=== PATIENT | female | born 1965 | race Caucasian/White ===

== ENCOUNTER → 2022-10-11 | Outpatient (CLI) | payer BC ==
[2022-10-11 07:44] VITALS: BP 189/113; PULSE 78; RESP 17; TEMP 97.9
--- NOTE | 2022-10-11 08:42 | P.GSHP ---
History of Present Illness H&P Date: 10/11/22 Ann-Marie is a 57 -year-old who is being seen for breast pain. [place] [address] which was benign BIRADS 2. She subsequently underwent an ultrasound on 330 122 of the left axillary area which revealed a 1.1 cm lymph node. There was felt to be some cortical thickening and an ultrasound-guided core biopsy was performed. The results of this were a benign [place] [address]. She is been having pain in the left breast in the upper outer quadrant region for several months. It is aching in nature. She has intermittent shooting pain from that site down towards the nipple. She has been given a course of antibiotics to see if that would help decrease the pain without relief. On a scale of 1-10 the pain is a 3. It never goes away. She does not have pain in any other areas of her breasts. She is not complaining of any new lumps masses or nodules in either breast. She is not complaining of any nipple discharge or skin changes. She has never had anything like this in the past. She has not taken any hormones. She is postmenopausal. She has had core biopsies 2 of the left breast in the past which were benign. Caffeine: 2 cups/day nicotine: none; stoppped 20 years ago used to smoke 1/2 PPD for 7 years chocolate: seldom BCP: used for 5 years hormones: none Family History: father: colon cancer paternal uncle: colon cancer paternal grandfather: colon cancer paternal aunt: breast cancer tripple - sister: breast cancer at 55 brother: lung cancer maternal grandfather: prostate cancer Hormonal History: menarche: 14 , breast fed: yes, age at first : 17 menopause: 49 BCP: used for 5 years remote past Surgical History: tonsil tubal Medical History: HTN Essential thrombocythemia (treated with a chemo pill) Social History: nicotine: stopped 20 years ago alcohol: beer/weekends drugs: none - Constitutional Constitutional: Reports sweats - EENT Eyes: denies blurred vision, denies pain Ears: bilateral: tinnitus, deny: decreased hearing Ears, nose, mouth and throat: Denies headache, Denies sore throat - Breasts Breasts: bilateral: as per HPI - Cardiovascular Cardiovascular: Denies chest pain, Denies shortness of breath - Respiratory Respiratory: Denies cough, Denies 7 - Gastrointestinal Gastrointestinal: Denies abdominal pain, Denies diarrhea, Denies nausea, Denies vomiting - Genitourinary (Female) Genitourinary: Denies dysuria, Denies hematuria - Menstruation Menstruation: Reports postmenopausal - Musculoskeletal Musculoskeletal: Denies myalgias - Integumentary Integumentary: Denies pruritus, Denies rash - Neurological Neurological: Denies numbness, Denies weakness - Psychiatric Psychiatric: Denies anxiety, Denies depression - Endocrine Endocrine: Denies fatigue, Denies weight change - Hematologic/Lymphatic Comment: Essential thrombocythemia - Allergic/Immunologic Allergic/Immunologic: Reports as per HPI Medications and Allergies Home Medications Medication Instructions Recorded Confirmed Type Cholecalciferol [Vitamin D3 (25 50 mcg PO DAILY 10/11/22 10/11/22 History Mcg = 1000 Iu)] Allergies Allergy/AdvReac Type Severity Reaction Status Date / Time bee venom protein (honey bee) Allergy Swelling Unverified 10/11/22 07:37 Surgical - Exam - General no distress - Eyes normal ocular movement - Neck trachea midline - Respiratory normal respiratory effort, clear to auscultation - Cardiovascular Rhythm: regular Heart Sounds: normal: S1, S2 - Abdomen Abdomen: soft, non tender, no guarding, no rigid, no rebound - Integumentary normal turgor - Neurologic no disoriented, no combative - Musculoskeletal normal gait, normal posture - Psychiatric oriented to time, oriented to person, oriented to place, speech is normal, memory intact Breast Exam: BRA: 44D inspection: Bilateral grade 2/3 ptosis Palpation: Right breast: Multi-positional exam fibrocystic changes, no discrete dominant masses or nodules of concern Right axilla: No adenopathy of concern Left breast: Multi-positional exam fibrocystic changes, no discrete dominant masses or nodules of concern Left axilla: No adenopathy of concern Results Mammogram and ultrasound reviewed personally with Dr. Ding Assessment and Plan Assessment: Impression: Fibrocystic breast changes bilateral Mastodynia left breast upper outer quadrant No discrete dominant masses or nodules in either breast or axilla Most recent mammogram was 329-22 benign BIRADS 2 History of essential thrombocytosis anemia Plan: Lifestyle modifications discussed/stopping caffeine, attempting primrose oil, nonsteroidals, Bilateral mammogram January with appointment At this time there is nothing specific which would warrant interventional biopsy We'll consider genetic testing secondary to family history CC: Dr. Velasco
== END ==
LOC: WWCWWP 07:30
PROVIDERS: ATTEND Surgery
DX: N60.11 Diffuse cystic mastopathy of right breast (principal); N60.12 Diffuse cystic mastopathy of left breast; N64.4 Mastodynia; D47.3 Essential (hemorrhagic) thrombocythemia; Z91.030 Bee allergy status

== ENCOUNTER → 2023-02-10 | Outpatient (CLI) | payer BC ==
--- NOTE | 2023-02-11 08:36 | MM ---
Reason for Exam: Screening (asymptomatic). Last screening mammogram was performed 12 month(s) ago. Patient History: Menarche at age 13. First Full-Term at age 16. Postmenopausal. Patient has history of breast feeding. 01/01/2021, Ultrasound-Guided Core Biopsy on the Left side. 02/28/2022, Ultrasound-Guided Core Biopsy on the Left side. Paternal aunt had breast cancer at or over age 50. Paternal half sister had breast cancer at or over age 50. Risk Values: Kathryn 5 year model risk: 1.4%. NCI Lifetime model risk: 8.5%. Prior Study Comparison: 08/26/2014 Bilateral Screening Mammogram, [facility]. 12/13/2020 Bilateral Diagnostic Mammogram, [facility]. 12/13/2020 Left Diagnostic Ultrasound, [facility]. 01/01/2021 Left Diagnostic Mammogram, [facility]. 02/05/2022 Bilateral Screening Mammogram, [facility]. 02/28/2022 Left Diagnostic Mammogram, [facility]. Tissue Density: The breast tissue is heterogeneously dense. This may lower the sensitivity of mammography. Findings: Analyzed By CAD. 5 mm nodular density right 6:00 position proximately 6 cm from the nipple. Additional views are recommended. No suspicious calcifications are present. Overall Assessment: Incomplete: need additional imaging evaluation, BI-RAD 0 Management: Diagnostic Mammogram of the right breast. A clinical breast exam by your physician is recommended on an annual basis and results should be correlated with mammographic findings. Electronically signed and approved by: Mukesh Varela M.D. Radiologis
== END | disposition home or self-care (01) ==
LOC: RADMAMWWP 09:30
PROVIDERS: ATTEND Surgery
DX: Z12.31 Encounter for screening mammogram for malignant neoplasm of breast (principal); Z78.0 Asymptomatic menopausal state; Z80.3 Family history of malignant neoplasm of breast
CPT/HCPCS: 77063; 77067

== ENCOUNTER → 2023-02-14 | Outpatient (CLI) | payer BC ==
--- NOTE | 2023-02-14 10:10 | MM ---
Reason for Exam: Additional evaluation requested from abnormal screening. Last screening mammogram was performed less than 1 month ago. Patient History: Menarche at age 13. First Full-Term at age 16. Postmenopausal. Patient has history of breast feeding. 01/01/2021, Ultrasound-Guided Core Biopsy on the Left side. 02/28/2022, Ultrasound-Guided Core Biopsy on the Left side. Paternal aunt had breast cancer at or over age 50. Paternal half sister had breast cancer at or over age 50. Risk Values: Kathryn 5 year model risk: 1.4%. NCI Lifetime model risk: 8.5%. Tissue Density: Right: The breast tissue is heterogeneously dense. This may lower the sensitivity of mammography. Findings: Analyzed By CAD. Rounded 5 mm high density circumscribed mass around 6:00 in the right breast at middle depth. This persists with compression. No suspicious calcifications or architectural distortion. Overall Assessment: Incomplete: need additional imaging evaluation, BI-RAD 0 Management: Diagnostic Breast Ultrasound of the right breast. A clinical breast exam by your physician is recommended on an annual basis and results should be correlated with mammographic findings. This exam should not preclude additional follow-up of suspicious palpable abnormalities. Results were given to the patient verbally at the time of exam. Electronically signed and approved by: Chai Finnegan D.O.
--- NOTE | 2023-02-14 11:03 | USB ---
Reason for Exam: Additional evaluation requested from abnormal screening. Patient History: Menarche at age 13. First Full-Term at age 16. Postmenopausal. Patient has history of breast feeding. 01/01/2021, Ultrasound-Guided Core Biopsy on the Left side. 02/28/2022, Ultrasound-Guided Core Biopsy on the Left side. Paternal aunt had breast cancer at or over age 50. Paternal half sister had breast cancer at or over age 50. Risk Values: Kathryn 5 year model risk: 1.4%. NCI Lifetime model risk: 8.5%. Technique: Method: Targeted. Prior Study Comparison: 02/05/2022 Bilateral Screening Mammogram, [facility]. 02/28/2022 Left Diagnostic Mammogram, [facility]. 02/10/2023 Bilateral MG 3D screening mammo w/cad, [facility]. Findings: The lower section of the breast of the right breast, the axilla of the right breast and the retroareolar of the right breast were scanned. Targeted ultrasound of the right breast at 6:00 with additional evaluation of the nipple and axilla was performed. There is a irregular hypoechoic mass demonstrated in the right breast at 6:00 5 cm of the nipple measuring 0.5 x 0.4 x 0.4 cm. This demonstrates posterior acoustic shadowing. It is not parallel in orientation with indistinct margins. No internal color flow demonstrated. No axillary adenopathy demonstrated. Overall Assessment: Suspicious, BI-RAD 4 Management: Ultrasound Core Biopsy of the right breast. A clinical breast exam by your physician is recommended on an annual basis and results should be correlated with mammographic findings. This exam should not preclude additional follow-up of suspicious palpable abnormalities. Results were given to the patient verbally at the time of exam. Electronically signed and approved by: Chai Finnegan D.O.
== END | disposition home or self-care (01) ==
LOC: RADMAMWWP 09:38
PROVIDERS: ATTEND Surgery
DX: R92.8 Other abnormal and inconclusive findings on diagnostic imaging of breast (principal); Z78.0 Asymptomatic menopausal state; Z80.3 Family history of malignant neoplasm of breast
CPT/HCPCS: 77061; 77065

== ENCOUNTER → 2023-02-14 | Outpatient (CLI) | payer BC ==
[2023-02-14 11:09] VITALS: BP 186/104; PULSE 68; RESP 18; TEMP 97.7
--- NOTE | 2023-02-14 11:41 | P.PN ---
Subjective Progress Note Date: 02/14/23 Principal diagnosis: abnormal right breast ultrasound 10-11-22 Ann-Marie is a 57 -year-old who is being seen for breast pain. She had a bilateral screening mammogram performed on which was benign BIRADS 2. She subsequently underwent an ultrasound on 330 122 of the left axillary area which revealed a 1.1 cm lymph node. There was felt to be some cortical thickening and an ultrasound-guided core biopsy was performed. The results of this were a benign left axillary lymph node. This was done on . She is been having pain in the left breast in the upper outer quadrant region for several months. It is aching in nature. She has intermittent shooting pain fro m that site down towards the nipple. She has been given a course of antibiotics to see if that would help decrease the pain without relief. On a scale of 1-10 the pain is a 3. It never goes away. She does not have pain in any other areas of her breasts. She is not complaining of any new lumps masses or nodules in either breast. She is not complaining of any nipple discharge or skin changes. She has never had anything like this in the past. She has not taken any hormones. She is postmenopausal. She has had core biopsies 2 of the left breast in the past which were benign. 02-14-23 The patient had a bilateral mammogram on 02-10-23 which resulted in additional studies of the right breast. These were done on 02-14-23. A diagnostic mammogram of the right breast performed on 4722 and an ultrasound was recommended. Around a 5 mm high density circumscribed mass was seen in the 6 o'clock position of the breast. On ultrasound performed the same date the patient was noted to have a 5 mm x 4 mm lesion consistent with the area seen on mammogram. Ultrasound core biopsy was recommended for this. Patient herself does not feel any lumps masses or nodules of concern in either breast. The pain in the left breast has not changed. She is not complaining of any nipple discharge or skin changes. Caffeine: 2 cups/day nicotine: none; stoppped 21 years ago used to smoke 1/2 PPD for 7 years chocolate: seldom BCP: used for 5 years hormones: none Family History: father: colon cancer paternal uncle: colon cancer paternal grandfather: colon cancer paternal aunt: breast cancer tripple - sister: breast cancer at 55 brother: lung cancer maternal grandfather: prostate cancer Hormonal History: menarche: 14 , breast fed: yes, age at first : 17 menopause: 49 BCP: used for 5 years remote past Surgical History: tonsil tubal Medical History: HTN Essential thrombocythemia (treated with a chemo pill) Social History: nicotine: stopped 20 years ago alcohol: beer/weekends drugs: none - Constitutional Constitutional: Reports sweats - EENT Eyes: denies blurred vision, denies pain Ears: bilateral: tinnitus, deny: decreased hearing Ears, nose, mouth and throat: Denies headache, Denies sore throat - Breasts Breasts: bilateral: as per HPI - Cardiovascular Cardiovascular: Denies chest pain, Denies shortness of breath - Respiratory Respiratory: Denies cough - Gastrointestinal Gastrointestinal: Denies abdominal pain, Denies diarrhea, Denies nausea, Denies vomiting - Genitourinary (Female) Genitourinary: Denies dysuria, Denies hematuria - Menstruation Menstruation: Reports postmenopausal - Musculoskeletal Musculoskeletal: Denies myalgias - Integumentary Integumentary: Denies pruritus, Denies rash - Neurological Neurological: Denies numbness, Denies weakness - Psychiatric Psychiatric: Denies anxiety, Denies depression - Endocrine Endocrine: Denies fatigue, Denies weight change - Hematologic/Lymphatic Comment: Essential thrombocythemia - Allergic/Immunologic Allergic/Immunologic: Reports as per HPI Medications and Allergies Home Medications Medication Instructions Recorded Confirmed Type Cholecalciferol [Vitamin D3 (25 50 mcg PO DAILY 10/11/22 10/11/22 History Mcg = 1000 Iu)] Allergies Allergy/AdvReac Type Severity Reaction Status Date / Time bee venom protein (honey bee) Allergy Swelling Unverified 10/11/22 07:37 Objective - Vital Signs Vital signs: Vital Signs Temp 97.7 F 02/14/23 11:04 Pulse 68 02/14/23 11:04 Resp 18 02/14/23 11:04 BP 186/104 02/14/23 11:04 Pulse Ox 99 02/14/23 11:04 FiO2 Intake & Output 02/13/23 02/14/23 02/14/23 18:59 06:59 18:59 Weight 89.811 kg - Constitutional General appearance: Present: cooperative - EENT Eyes: Present: EOMI ENT: Present: hearing grossly normal - Neck Neck: Present: normal ROM - Respiratory Respiratory: bilateral: CTA - Cardiovascular Rhythm: regular Heart sounds: normal: S1, S2 - Gastrointestinal General gastrointestinal: Present: soft - Integumentary Integumentary: Present: normal turgor - Musculoskeletal Musculoskeletal: Present: gait normal - Psychiatric Psychiatric: Present: A&O x's 3, appropriate affect, intact judgment & insight - Additional findings Additional findings: Breast Exam: BRA: 44D inspection: Bilateral grade 2/3 ptosis Palpation: Right breast: Multi-positional exam fibrocystic changes, no discrete dominant masses or nodules of concern Right axilla: No adenopathy of concern Left breast: Multi-positional exam fibrocystic changes, no discrete dominant masses or nodules of concern Left axilla: No adenopathy of concern Assessment and Plan Assessment: Impression: Fibrocystic breast changes bilateral Mastodynia left breast upper outer quadrant no change No discrete dominant masses or nodules in either breast or axilla Most recent mammogram resulted in additional workup of the right breast at 6:00 Ultrasound right breast 6:00 5 mm lesion for which core biopsy is recommended History of essential thrombocytosis anemia Plan: Lifestyle modifications discussed/stopping caffeine, attempting primrose oil, nonsteroidals, Ultrasound core biopsy right breast in follow-up after this The patient did a 23 and me genetic test which did not show anything, she understands that she could have a formal genetic testing done here at this time she is going to wait CC: Dr. Velasco
== END ==
LOC: WWCWWP 09:37
PROVIDERS: ATTEND Surgery
DX: N60.29 Fibroadenosis of unspecified breast (principal); R92.8 Other abnormal and inconclusive findings on diagnostic imaging of breast; N64.4 Mastodynia; N60.12 Diffuse cystic mastopathy of left breast; Z86.2 Personal history of diseases of the blood and blood-forming organs and certain disorders involving the immune mechanism; Z91.030 Bee allergy status; I10 Essential (primary) hypertension

== ENCOUNTER → 2023-03-05 | Day surgery (SDC) | payer BC ==
--- NOTE | 2023-03-10 10:20 | MM ---
Reason for Exam: Post Procedure Mammogram. Last screening mammogram was performed less than 1 month ago. Patient History: Menarche at age 13. First Full-Term at age 16. Postmenopausal. Patient has history of breast feeding. 01/01/2021, Ultrasound-Guided Core Biopsy on the Left side. 02/28/2022, Ultrasound-Guided Core Biopsy on the Left side. Paternal aunt had breast cancer at or over age 50. Paternal half sister had breast cancer at or over age 50. Risk Values: Kathryn 5 year model risk: 1.4%. NCI Lifetime model risk: 8.5%. Prior Study Comparison: 02/28/2022 Left Diagnostic Mammogram, [facility]. 02/10/2023 Bilateral MG 3D screening mammo w/cad, [facility]. 02/14/2023 Right US breast workup limited RT, [facility]. 02/14/2023 Right MG 3D work up w/cad RT, [facility]. Tissue Density: Right: The breast tissue is heterogeneously dense. This may lower the sensitivity of mammography. Findings: Stable parenchyma within the breasts. No new suspicious masses, calcifications or distortions. Pathology Description: Location: 6 o'clock. Marker Left Behind. Needle Type: Mammotome Cores: 7 Skin Nicks: 1 Gauge: 13 The procedure of ultrasound guided core biopsy was explained to the patient. Benefits, alternatives, and risks were discussed. An informed consent was then obtained. The patient was placed in supine positioning for imaging and for the procedure. The overlying skin was prepped and draped in usual sterile fashion. Lidocaine buffered with bicarbonate was used as anesthetic into the skin and subcutaneous tissue up to area of concern in the right breast. A marek was made with surgical scalpel. Under ultrasound guidance, a 12-gauge vacuum assisted biopsy gun device was used to obtain 7 core samples. Following this, a biopsy clip was left in lesion. The patient tolerated the procedure well without any immediate complication. The patient was kept in the radiology department for short stay after the procedure and then discharged home in stable condition. Postprocedure mammogram: The patient was transferred to mammography for physician ordered post procedure mammogram for clip placement verification. Impression: Successful, uncomplicated ultrasound guided core biopsy of area of concern in the right breast, full pathology results to follow. Pathology Results: Result: High risk, Intraductual papilloma high risk. RIGHT BREAST, SIX O'CLOCK, ULTRASOUND GUIDED NEEDLE CORE BIOPSY: Intraductal papilloma. Overall Assessment: High risk Assessment: MG diagnostic mammo RT wo CAD - Right: Suspicious, BI-RAD 4. Management: Surgical Consultation of the right breast. Electronically signed and approved by: Nilton Stevens DO
== END ==
LOC: RADUSWWP 07:54
PROVIDERS: ATTEND Surgery
DX: D24.1 Benign neoplasm of right breast (principal); Z78.0 Asymptomatic menopausal state; Z80.3 Family history of malignant neoplasm of breast
CPT/HCPCS: 88305; 77065; 19083; A4648

== ENCOUNTER → 2023-04-23 | Outpatient (CLI) | payer BC ==
[2023-04-23 10:28] VITALS: BP 136/85; PULSE 70; RESP 18; TEMP 97.9
--- NOTE | 2023-04-23 10:54 | P.PN ---
Subjective Progress Note Date: 04/23/23 Principal diagnosis: right breast intraductal papilloma intraductal papilloma 02-14-23 The patient had a bilateral mammogram on 02-10-23 which resulted in additional studies of the right breast. These were done on 02-14-23. A diagnostic mammogram of the right breast performed on 4722 and an ultrasound was recommended. Around a 5 mm high density circumscribed mass was seen in the 6 o'clock position of the breast. On ultrasound performed the same date the patient was noted to h ave a 5 mm x 4 mm lesion consistent with the area seen on mammogram. Ultrasound core biopsy was recommended for this. Patient herself does not feel any lumps masses or nodules of concern in either breast. The pain in the left breast has not changed. She is not complaining of any nipple discharge or skin changes. 03-14-23 Ultrasound core biopsy of the lesion in the right breast was an intraductal papilloma. She tolerated the biopsy without difficulty. I reviewed this in detail with radiology Dr. Grace He is not certain that the lesion was entirely removed. The lesion is vascular in nature. His recommendation is that it should be removed. Discussed this with the patient as well. We have talked about close surveillance and watching the area. However with the above findings as well as positive family history she would prefer that this be removed. Caffeine: 2 cups/day nicotine: none; stoppped 21 years ago used to smoke 1/2 PPD for 7 years chocolate: seldom BCP: used for 5 years hormones: none Family History: father: colon cancer paternal uncle: colon cancer paternal grandfather: colon cancer paternal aunt: breast cancer tripple - sister: breast cancer at 55 brother: lung cancer maternal grandfather: prostate cancer Hormonal History: menarche: 14 , breast fed: yes, age at first : 17 menopause: 49 BCP: used for 5 years remote past Surgical History: tonsil tubal Medical History: HTN Essential thrombocythemia (treated with a chemo pill) Social History: nicotine: stopped 20 years ago alcohol: beer/weekends drugs: none - Constitutional Constitutional: Reports sweats - EENT Eyes: denies blurred vision, denies pain Ears: bilateral: tinnitus, deny: decreased hearing Ears, nose, mouth and throat: Denies headache, Denies sore throat - Breasts Breasts: bilateral: as per HPI - Cardiovascular Cardiovascular: Denies chest pain, Denies shortness of breath - Respiratory Respiratory: Denies cough - Gastrointestinal Gastrointestinal: Denies abdominal pain, Denies diarrhea, Denies nausea, Denies vomiting - Genitourinary (Female) Genitourinary: Denies dysuria, Denies hematuria - Menstruation Menstruation: Reports postmenopausal - Musculoskeletal Musculoskeletal: Denies myalgias - Integumentary Integumentary: Denies pruritus, Denies rash - Neurological Neurological: Denies numbness, Denies weakness - Psychiatric Psychiatric: Denies anxiety, Denies depression - Endocrine Endocrine: Denies fatigue, Denies weight change - Hematologic/Lymphatic Comment: Essential thrombocythemia - Allergic/Immunologic Allergic/Immunologic: Reports as per HPI Medications and Allergies Home Medications Medication Instructions Recorded Confirmed Type Cholecalciferol [Vitamin D3 (25 50 mcg PO DAILY 10/11/22 10/11/22 History Mcg = 1000 Iu)] Allergies Allergy/AdvReac Type Severity Reaction Status Date / Time bee venom protein (honey bee) Allergy Swelling Unverified 10/11/22 07:37 Objective - Vital Signs Vital signs: Vital Signs Temp 97.9 F 04/23/23 10:23 Pulse 70 04/23/23 10:23 Resp 18 04/23/23 10:23 BP 136/85 04/23/23 10:23 Pulse Ox 97 04/23/23 10:23 FiO2 Intake & Output 04/22/23 04/23/23 04/23/23 18:59 06:59 18:59 Weight 79.379 kg - Constitutional General appearance: Present: cooperative - EENT Eyes: Present: EOMI ENT: Present: hearing grossly normal - Neck Neck: Present: normal ROM - Respiratory Respiratory: bilateral: CTA - Cardiovascular Rhythm: regular Heart sounds: normal: S1, S2 - Gastrointestinal General gastrointestinal: Present: soft - Integumentary Integumentary: Present: normal turgor - Musculoskeletal Musculoskeletal: Present: gait normal - Psychiatric Psychiatric: Present: A&O x's 3, appropriate affect, intact judgment & insight - Additional findings Additional findings: BRA: 44D inspection: Bilateral grade 2/3 ptosis Palpation: Right breast: Multi-positional exam fibrocystic changes, no discrete dominant masses or nodules of concern Right axilla: No adenopathy of concern Left breast: Multi-positional exam fibrocystic changes, no discrete dominant masses or nodules of concern; no evidence of hematoma or ecchymosis related to recent biopsy Left axilla: No adenopathy of concern Assessment and Plan Assessment: Impression: Fibrocystic breast changes bilateral Mastodynia left breast upper outer quadrant no change No discrete dominant masses or nodules in either breast or axilla Most recent mammogram resulted in additional workup of the right breast at 6:00 Pathology intraductal papilloma right breast incompletely excised/vascular lesion History of essential thrombocytosis anemia Plan: Lifestyle modifications discussed/stopping caffeine, attempting primrose oil, nonsteroidals, Parents from Dr. Velasco/the patient has essential thrombocytosis and has high platelets we will get clearance prior to surgical resection Ultrasound core biopsy right breast pathology intraductal papilloma, incompletely excised and vascular lesion, recommendation as per radiology is for excision Needle localization right breast and lumpectomy of area of intraductal papilloma right breast, possible onco-plastic tissue transfer Risk and benefits of the procedure were discussed with the patient. Risks include but are not limited to bleeding, infection, reaction to the anesthetic. The lesion were to be in complete clearly excised may be necessary to re-excise in the future. We discussed chemoprophylaxis however the patient is not interested at this time. The patient did a 23 and me genetic test which did not show anything, she understands that she could have a formal genetic testing done here at this time she is going to wait CC: Dr. Velasco
== END ==
LOC: WWCWWP 10:08
PROVIDERS: ATTEND Surgery
DX: N60.12 Diffuse cystic mastopathy of left breast (principal); N64.4 Mastodynia; D75.839 Thrombocytosis, unspecified; D47.3 Essential (hemorrhagic) thrombocythemia; I10 Essential (primary) hypertension; Z80.3 Family history of malignant neoplasm of breast; Z80.0 Family history of malignant neoplasm of digestive organs; Z80.1 Family history of malignant neoplasm of trachea, bronchus and lung; Z90.11 Acquired absence of right breast and nipple; Z91.030 Bee allergy status; Z87.891 Personal history of nicotine dependence

== ENCOUNTER 2023-05-20 09:17 | Day surgery (SDC) | payer BC ==
[~2023-05-20 09:17] MED LIST: DEXAMETHASONE SOD PHOSPHATE 4 MG/ML 1 ML VIAL IV ONE; HEPARIN SODIUM,PORCINE/PF 5,000 UNIT/0.5 ML SYRINGE SQ PRN; HYDROmorphone 0.5 MG/0.5 ML SYRINGE IVP PRN; LACTATED RINGERS 1,000 ML IV SCH; LIDOCAINE 1% (10MG/ML) FOR IV START INTRADERMA PRN; ONDANSETRON 4 MG/2 ML VIAL IVP ONE; Pre Op ABX Message 1 EACH MISC MISCELLANE ONE; droPERidol 5 MG/2 ML VIAL IVP ONE
[2023-05-20] MEDS ORDERED: ALPRAZolam 0.25 MG TAB ONE (09:54)
[2023-05-20] MEDS ORDERED: ALPRAZolam 0.25 MG TAB PO ONE (09:57)
[2023-05-20] MEDS ORDERED: LIDOCAINE 1% INJ 10MG/ML (20 ML MDV) SQ ONE (10:36)
[2023-05-20] MEDS ORDERED: KETOROLAC 15 MG/ML 1 ML VIAL ONE (11:48)
[2023-05-20] MEDS ORDERED: PROPOFOL 10 MG/ML 20 ML VIAL IV ONE (11:48)
[2023-05-20] MEDS ORDERED: PHENYLEPHRINE-0.9% NACL SYG 1,000 MCG/10 ML SYRINGE ONE (11:48)
[2023-05-20] MEDS ORDERED: fentaNYL (PF) 50 MCG/ML 2 ML AMP ONE (11:48)
[2023-05-20] MEDS ORDERED: LIDOCAINE 2% INJ 20 MG/ML (2 ML VIAL) ONE (11:48)
[2023-05-20] MEDS ORDERED: MIDAZOLAM 2 MG/2 ML VIAL ONE (11:48)
--- NOTE | 2023-05-20 12:57 | P.OP ---
Date of Procedure: 05/20/23 Preoperative Diagnosis: Right breast core biopsy intraductal papilloma with vascularity and incompletely excised, recommendation as per radiology for excision Postoperative Diagnosis: Same Procedure(s) Performed: Needle localization excisional biopsy right breast, onco-plastic tissue transfer 8 cm Anesthesia: GETA Surgeon: Ina Henson Estimated Blood Loss (ml): 5 IV fluids (ml): 500 Pathology: other (Breast tissue/radiographic specimen revealed clip and area of concern reviewed with Dr. Stevens radiology) Condition: stable Disposition: same day Indications for Procedure: core Biopsy right breast intraductal papilloma incompletely excised with increased vascularity as per radiology recommended excision Operative Findings: Fibrofatty breast tissue Description of Procedure: Following needle localization of the area of concern in the right breast patient was taken to the operative suite. Following induction of anesthesia the right breast was prepped and draped in a sterile fashion. An incision was made and carried down to the shaft of the needle. Dissection was performed to the thick portion of the terminal portion of the needle. Wide excision was performed around this area. After assured that hemostasis was attained and inferior pedicle supply 2 cm in size was developed for closure of the defect. The defect itself was approximately 4 x 2 cm. The area was irrigated. Titanium clips were placed. The cavity was closed using 3-0 Vicryl suture. Total tissue transfer was 16 cm. The specimen was radiographed and the area of concern as well as the clip was felt to be present in the specimen. The subcutaneous tissue was closed using 4-0 Monocryl. Steri-Strips were applied. The patient tolerated the procedure in stable condition. All instrument and sponge counts were correct at the end of the case.
[2023-05-20 13:08] VITALS: TEMP 97.2
[2023-05-20 13:47] VITALS: RESP 16
[2023-05-20] MEDS ORDERED: HYDROcodone/APAP 5-325MG 1 EACH TAB ONE (14:03)
[2023-05-20] MEDS ORDERED: HYDROcodone/APAP 5-325MG 1 EACH TAB PO ONE (14:07)
[2023-05-20 14:22] VITALS: BP 150/86; PULSE 73
== END 2023-05-20 14:48 | disposition home or self-care (01) ==
LOC: OR 09:17
PROVIDERS: ATTEND Surgery
DX: D24.1 Benign neoplasm of right breast (principal)
CPT/HCPCS: 19125; 14000; 88307; 77065; 76098; 19285; C1819; J2250; J1100; J2405; J2001 ×2; J3010; J1885; J2370; J2704; J1644

== ENCOUNTER → 2023-05-29 | Outpatient (CLI) | payer BC ==
[2023-05-29 08:28] VITALS: BP 134/83; PULSE 78; RESP 18; TEMP 97.9
--- NOTE | 2023-05-29 08:33 | P.PN ---
Progress Note - Text Progress Note Date: 05/29/23 Ann-Marie is a 57 year old white female status post right breast needle localization and resection on 05-20-23. Her pathology revealed an intraductal papilloma focally extending to the cauterized margin and ADH, margins (-). Examination: Lungs: Clear Heart: Regular rate and rhythm Incision right breast clean and dry no evidence of hematoma or infection Impression: Right breast atypical ductal hyperplasia/intraductal papilloma extending to cauterized margin of excision Plan: We have discussed possible chemoprophylaxis, the patient has essential thrombocytosis, which increases her risks of blood clotting She is going to meet and discuss this with medical oncology Repeat right breast mammogram in 6 months with physician exam at that time CC: Dr. Velasco
== END ==
LOC: WWCWWP 08:04
PROVIDERS: ATTEND Surgery
DX: N60.91 Unspecified benign mammary dysplasia of right breast (principal); D24.1 Benign neoplasm of right breast; Z91.030 Bee allergy status

== ENCOUNTER → 2023-08-29 | Outpatient (CLI) | payer BC ==
[2023-08-29 12:11] VITALS: BP 170/93; PULSE 78; RESP 17; TEMP 98.3
--- NOTE | 2023-08-29 12:25 | P.PN ---
Subjective Progress Note Date: 08/29/23 right breast intraductal papilloma 02-14-23 The patient had a bilateral mammogram on 02-10-23 which resulted in additional studies of the right breast. These were done on 02-14-23. A diagnostic mammogram of the right breast performed on 4722 and an ultrasound was recommended. Around a 5 mm high density circumscribed mass was seen in the 6 o'clock position of the breast. On ultrasound performed the same date the patient was noted to have a 5 mm x 4 mm lesion consistent with the area seen on mammogram. Ultrasound core biopsy was recommended for this. Patient herself does not feel any lumps masses or nodules of concern in either breast. The pain in the left breast has not changed. She is not complaining of any nipple discharge or skin changes. 03-14-23 Ultrasound core biopsy of the lesion in the right breast was an intraductal papilloma. She tolerated the biopsy without difficulty. I reviewed this in detail with radiology Dr. Grace He is not certain that the lesion was entirely removed. The lesion is vascular in nature. His recommendation is that it should be removed. Discussed this with the patient as well. We have talked about close surveillance and watching the area. However with the above findings as well as positive family history she would prefer that this be removed. 08-29-23 The patient on underwent a needle localization and excisional biopsy of an intraductal papilloma of the right breast. This revealed intraductal papilloma focally extending to the cauterized margin. There was atypical ductal hyperplasia and not involving the margin. The patient noted some dimpling on the right inferior breast. She does not note any new masses. medical oncology note reviewed genetic testing was performed and results were negative, Chemoprophylaxis discussed by medical oncology and secondary to the fact that she has essential thrombocythemia she opted not to hit take tamoxifen They also reviewed aromatase inhibitors and she is going to consider this Caffeine: 2 cups/day nicotine: none; stoppped 21 years ago used to smoke 1/2 PPD for 7 years chocolate: seldom BCP: used for 5 years hormones: none Family History: father: colon cancer paternal uncle: colon cancer paternal grandfather: colon cancer paternal aunt: breast cancer tripple - sister: breast cancer at 55 brother: lung cancer maternal grandfather: prostate cancer Hormonal History: menarche: 14 , breast fed: yes, age at first : 17 menopause: 49 BCP: used for 5 years remote past Surgical History: tonsil tubal Medical History: HTN Essential thrombocythemia (treated with a chemo pill) Social History: nicotine: stopped 20 years ago alcohol: beer/weekends drugs: none - Constitutional Constitutional: Reports sweats - EENT Eyes: denies blurred vision, denies pain Ears: bilateral: tinnitus, deny: decreased hearing Ears, nose, mouth and throat: Denies headache, Denies sore throat - Breasts Breasts: bilateral: as per HPI - Cardiovascular Cardiovascular: Denies chest pain, Denies shortness of breath - Respiratory Respiratory: Denies cough - Gastrointestinal Gastrointestinal: Denies abdominal pain, Denies diarrhea, Denies nausea, Denies vomiting - Genitourinary (Female) Genitourinary: Denies dysuria, Denies hematuria - Menstruation Menstruation: Reports postmenopausal - Musculoskeletal Musculoskeletal: Denies myalgias - Integumentary Integumentary: Denies pruritus, Denies rash - Neurological Neurological: Denies numbness, Denies weakness - Psychiatric Psychiatric: Denies anxiety, Denies depression - Endocrine Endocrine: Denies fatigue, Denies weight change - Hematologic/Lymphatic Comment: Essential thrombocythemia - Allergic/Immunologic Allergic/Immunologic: Reports as per HPI Medications and Allergies Home Medications Medication Instructions Recorded Confirmed Type Cholecalciferol [Vitamin D3 (25 50 mcg PO DAILY 10/11/22 10/11/22 History Mcg = 1000 Iu)] Allergies Allergy/AdvReac Type Severity Reaction Status Date / Time bee venom protein (honey bee) Allergy Swelling Unverified 10/11/22 07:37 Objective - Vital Signs Vital signs: Intake & Output 08/28/23 08/29/23 08/29/23 18:59 06:59 18:59 Weight 86.183 kg - Constitutional General appearance: Present: cooperative - EENT Eyes: Present: EOMI - Neck Neck: Present: normal ROM - Respiratory Respiratory: bilateral: CTA - Cardiovascular Rhythm: regular Heart sounds: normal: S1, S2 - Integumentary Integumentary: Present: normal turgor - Musculoskeletal Musculoskeletal: Present: gait normal - Psychiatric Psychiatric: Present: A&O x's 3, appropriate affect, intact judgment & insight - Additional findings Additional findings: BRA: 44D inspection: Bilateral grade 2/3 ptosis Palpation: Right breast: Multi-positional exam fibrocystic changes, no discrete dominant masses or nodules of concern, well-healed scar from prior biopsy, there is some dimpling of the skin when she raises her arm at the biopsy site Right axilla: No adenopathy of concern Left breast: Multi-positional exam fibrocystic changes, no discrete dominant masses or nodules of concern; Left axilla: No adenopathy of concern Assessment and Plan Assessment: Impression: Fibrocystic breast changes bilateral Mastodynia left breast upper outer quadrant no change No discrete dominant masses or nodules in either breast or axilla Most recent mammogram resulted in additional workup of the right breast at 6:00 Pathology intraductal papilloma right breast incompletely excised/vascular lesion/she underwent needle localization and excision of this lesion on History of essential thrombocytosis anemia Plan: Patient is due for bilateral mammogram first of the year then appointment Ultrasound of the right breast the area of dimpling, to follow up after ultrasound for results Patient is going to consider aromatase inhibitor and will follow with medical oncology We discussed chemoprophylaxis she is considering this with medical oncology CC: Dr. Velasco
== END ==
LOC: WWCWWP 11:56
PROVIDERS: ATTEND Surgery
DX: N60.12 Diffuse cystic mastopathy of left breast (principal); N60.11 Diffuse cystic mastopathy of right breast; N64.4 Mastodynia; I10 Essential (primary) hypertension; D24.1 Benign neoplasm of right breast; Z80.3 Family history of malignant neoplasm of breast; Z87.891 Personal history of nicotine dependence; Z91.030 Bee allergy status; Z79.899 Other long term (current) drug therapy

== ENCOUNTER → 2023-08-29 | Outpatient (CLI) | payer BC ==
--- NOTE | 2023-08-29 13:21 | USB ---
Reason for Exam: Clinical finding. Patient History: Menarche at age 13. First Full-Term at age 16. Postmenopausal. Patient has history of breast feeding. Previous Hyperplasia w/o Atypia at age 57. 05/20/2023, Benign US breast localization RT on the right side. 03/05/2023, High risk US biopsy breast VAD RT on the right side. 01/01/2021, Ultrasound-Guided Core Biopsy on the Left side. 02/28/2022, Ultrasound-Guided Core Biopsy on the Left side. Paternal aunt had breast cancer at or over age 50. Paternal half sister had breast cancer at or over age 50. Risk Values: Kathryn 5 year model risk: 1.4%. NCI Lifetime model risk: 8.3%. Technique: Method: Targeted. Prior Study Comparison: 02/14/2023 Right MG 3D work up w/cad RT, [facility]. 03/05/2023 Right MG diagnostic mammo RT wo CAD, [facility]. 05/20/2023 Right MG diagnostic mammo RT wo CAD, [facility]. Findings: The lower section of the breast of the right breast was scanned. There appears to be probable seroma at the site of clinical concern at the lumpectomy site which corresponds to the right 5 to 7:00 position 5 cm from the nipple measuring 2.3 x 1.3 cm. Short-term follow-up and clinical correlation advised. Overall Assessment: Probably benign, BI-RAD 3 Management: Diagnostic Breast Ultrasound of the right breast in 3 months. A clinical breast exam by your physician is recommended on an annual basis and results should be correlated with mammographic findings. This exam should not preclude additional follow-up of suspicious palpable abnormalities. Results were given to the patient verbally at the time of exam. Electronically signed and approved by: Mukesh Varela M.D. Radiologis
== END | disposition home or self-care (01) ==
LOC: RADUSWWP 12:30
PROVIDERS: ATTEND Surgery
DX: R92.8 Other abnormal and inconclusive findings on diagnostic imaging of breast (principal); Z78.0 Asymptomatic menopausal state; Z80.3 Family history of malignant neoplasm of breast

== ENCOUNTER → 2023-11-24 | Outpatient (CLI) | payer BC ==
--- NOTE | 2023-11-24 09:43 | MM ---
Reason for Exam: Follow-up at short interval from prior study. Last screening mammogram was performed 9 month(s) ago. Patient History: Menarche at age 13. First Full-Term at age 16. Postmenopausal. Patient has history of breast feeding. Previous Hyperplasia w/o Atypia at age 57. Hormonal Contraceptives for 2 years from age 18 until age 20. 05/20/2023, Benign US breast localization RT on the right side. 03/05/2023, High risk US biopsy breast VAD RT on the right side. 01/01/2021, Ultrasound-Guided Core Biopsy on the Left side. 02/28/2022, Ultrasound-Guided Core Biopsy on the Left side. Paternal aunt had breast cancer, age 70. Paternal half sister had breast cancer, age 54. Risk Values: Kathryn 5 year model risk: 1.4%. NCI Lifetime model risk: 8.3%. Tissue Density: There are scattered fibroglandular densities. Findings: Analyzed By CAD. Postexcisional changes on the right. Microclip left breast from prior biopsies. Microclip in the left axilla from prior biopsy as well. No significant change from prior exams. Overall Assessment: Benign, BI-RAD 2 Management: Screening Mammogram of both breasts in 1 year. . Results were given to the patient verbally at the time of exam. Patient should continue monthly self-breast exams. A clinical breast exam by your physician is recommended on an annual basis. This exam should not preclude additional follow-up of suspicious palpable abnormalities. Note on Kathryn scores and lifetime risk: 1. A Kathryn score greater than 3% is considered moderate risk. If this is the case, consider specialist referral to assess eligibility for a risk reducing agent. 2. If overall lifetime risk for the development of breast cancer is 20% or higher, the patient may qualify for future screening with alternating mammogram and breast MRI. Electronically signed and approved by: Yoryd Bustamante M.D. Radiologist
== END | disposition home or self-care (01) ==
LOC: RADMAMWWP 08:34
PROVIDERS: ATTEND Surgery
DX: R92.323 Mammographic fibroglandular density, bilateral breasts (principal); Z78.0 Asymptomatic menopausal state; Z80.3 Family history of malignant neoplasm of breast
CPT/HCPCS: 77062; 77066

== ENCOUNTER → 2023-12-04 | Outpatient (CLI) | payer BC ==
[2023-12-04 14:44] VITALS: BP 180/88; PULSE 75; RESP 17; TEMP 97.8
--- NOTE | 2023-12-04 14:58 | P.PN ---
Subjective Progress Note Date: 12/04/23 08/29/23 right breast intraductal papilloma 02-14-23 The patient had a bilateral mammogram on 02-10-23 which resulted in additional studies of the right breast. These were done on 02-14-23. A diagnostic mammogram of the right breast performed on 4722 and an ultrasound was recommended. Around a 5 mm high density circumscribed mass was seen in the 6 o'clock position of the breast. On ultrasound performed the same date the patient was noted to have a 5 mm x 4 mm lesion consistent with the area seen on mammogram. Ultrasound core biopsy was recommended for this. Patient herself does not feel any lumps masses or nodules of concern in either breast. The pain in the left breast has not changed. She is not complaining of any nipple discharge or skin changes. 03-14-23 Ultrasound core biopsy of the lesion in the right breast was an intraductal papilloma. She tolerated the biopsy without difficulty. I reviewed this in detail with radiology Dr. Grace He is not certain that the lesion was entirely removed. The lesion is vascular in nature. His recommendation is that it should be removed. Discussed this with the patient as well. We have talked about close surveillance and watching the area. However with the above findings as well as positive family history she would prefer that this be removed. 08-29-23 The patient on underwent a needle localization and excisional biopsy of an intraductal papilloma of the right breast. This revealed intraductal papilloma focally extending to the cauterized margin. There was atypical ductal hyperplasia and not involving the margin. The patient noted some dimpling on the right inferior breast. She does not note any new masses. medical oncology note reviewed genetic testing was performed and results were negative, Chemoprophylaxis discussed by medical oncology and secondary to the fact that she has essential thrombocythemia she opted not to not take tamoxifen They also reviewed aromatase inhibitors and she is going to consider this 12-04-23 Medical oncology note 09-23-2023 reviewed. Follow-up for essential thromboc ythemia; again a discussion regarding chemoprophylaxis was entertained however secondary to the thrombocytopenia anemia she declined 11-24-23 bilateral mammogram BI-RADS 2, personally reviewed; no new finding of any new lumps masses or nodules of concern in either breast on exam by the patient. Caffeine: 2 cups/day nicotine: none; stoppped 21 years ago used to smoke 1/2 PPD for 7 years chocolate: seldom BCP: used for 5 years hormones: none Family History: father: colon cancer paternal uncle: colon cancer paternal grandfather: colon cancer paternal aunt: breast cancer tripple - sister: breast cancer at 55 brother: lung cancer maternal grandfather: prostate cancer Hormonal History: menarche: 14 , breast fed: yes, age at first : 17 menopause: 49 BCP: used for 5 years remote past Surgical History: tonsil tubal Medical History: HTN Essential thrombocythemia (treated with a chemo pill in the past, now takes daily baby aspirin) Social History: nicotine: stopped 20 years ago alcohol: beer/weekends drugs: none - Constitutional Constitutional: Reports sweats - EENT Eyes: denies blurred vision, denies pain Ears: bilateral: tinnitus, deny: decreased hearing Ears, nose, mouth and throat: Denies headache, Denies sore throat - Breasts Breasts: bilateral: as per HPI - Cardiovascular Cardiovascular: Denies chest pain, Denies shortness of breath - Respiratory Respiratory: Denies cough - Gastrointestinal Gastrointestinal: Denies abdominal pain, Denies diarrhea, Denies nausea, Denies vomiting - Genitourinary (Female) Genitourinary: Denies dysuria, Denies hematuria - Menstruation Menstruation: Reports postmenopausal - Musculoskeletal Musculoskeletal: Denies myalgias - Integumentary Integumentary: Denies pruritus, Denies rash - Neurological Neurological: Denies numbness, Denies weakness - Psychiatric Psychiatric: Denies anxiety, Denies depression - Endocrine Endocrine: Denies fatigue, Denies weight change - Hematologic/Lymphatic Comment: Essential thrombocythemia - Allergic/Immunologic Allergic/Immunologic: Reports as per HPI Medications and Allergies Home Medications Medication Instructions Recorded Confirmed Type Cholecalciferol [Vitamin D3 (25 50 mcg PO DAILY 10/11/22 10/11/22 History Mcg = 1000 Iu)] Allergies Allergy/AdvReac Type Severity Reaction Status Date / Time bee venom protein (honey bee) Allergy Swelling Unverified 10/11/22 07:37 Objective - Vital Signs Vital signs: Vital Signs Temp 97.8 F 12/04/23 14:41 Pulse 75 12/04/23 14:41 Resp 17 12/04/23 14:41 BP 180/88 01/25/24 14:41 Pulse Ox 97 12/04/23 14:41 FiO2 Intake & Output 12/03/23 12/04/23 12/04/23 18:59 06:59 18:59 Weight 88.451 kg - Constitutional General appearance: Present: cooperative - EENT Eyes: Present: EOMI ENT: Present: hearing grossly normal - Neck Neck: Present: normal ROM - Respiratory Respiratory: bilateral: CTA - Cardiovascular Heart sounds: normal: S1, S2 - Integumentary Integumentary: Present: normal turgor - Musculoskeletal Musculoskeletal: Present: gait normal - Psychiatric Psychiatric: Present: A&O x's 3, appropriate affect, intact judgment & insight - Additional findings Additional findings: BRA: 44D inspection: Bilateral grade 2/3 ptosis Palpation: Right breast: Multi-positional exam fibrocystic changes, no discrete dominant masses or nodules of concern, well-healed scar from prior biopsy, there is some dimpling of the skin when she raises her arm at the biopsy site Right axilla: No adenopathy of concern Left breast: Multi-positional exam fibrocystic changes, no discrete dominant masses or nodules of concern; Left axilla: No adenopathy of concern Assessment and Plan Assessment: Impression: Fibrocystic breast changes bilateral No discrete dominant masses or nodules in either breast or axilla bilateral mammogram on11-24-23 B[facility] 2 Pathology intraductal papilloma right breast incompletely excised/vascular lesion/she underwent needle localization and excision of this lesion on History of essential thrombocytosis anemia Plan: bilateral mammogram in November 2024 with appointment at that time follow medical oncology We discussed chemoprophylaxis she has declined this secondary to essential thrombocytosis CC: Dr. Velasco
== END ==
LOC: WWCWWP 14:36
PROVIDERS: ATTEND Surgery
DX: N60.11 Diffuse cystic mastopathy of right breast (principal); N60.12 Diffuse cystic mastopathy of left breast; N64.4 Mastodynia; D24.1 Benign neoplasm of right breast; D47.3 Essential (hemorrhagic) thrombocythemia; I10 Essential (primary) hypertension; Z80.3 Family history of malignant neoplasm of breast; Z87.891 Personal history of nicotine dependence; Z91.030 Bee allergy status; Z98.890 Other specified postprocedural states; Z79.899 Other long term (current) drug therapy

== ENCOUNTER → 2024-03-30 | Outpatient (CLI) | payer BC ==
--- NOTE | 2024-03-30 15:50 | US ---
EXAMINATION TYPE: US thyroid st tissue head/neck DATE OF EXAM: 03/30/2024 COMPARISON: NONE CLINICAL INDICATION: Female, 58 years old with history of R59.0 LYMPHADENOPATHY; Left lateral neck/campos praclavicular area palpable area of "puffiness" since December Several sonographic images taken at patients palpable area of concern, as well as the contralateral s ludmila for comparison. There does not appear to be any discernable abnormality at the palpable area. Bilateral neck scanned at the jugular chain, no evidence of lymphadenopathy. IMPRESSION: 1. Negative ultrasound of the neck. No ultrasound abnormality to account for patient's clinical findi ngs. Clinical management recommended.
== END | disposition home or self-care (01) ==
LOC: RADUSWWP 12:42
PROVIDERS: ATTEND Internal Medicine
DX: R59.0 Localized enlarged lymph nodes (principal); N62 Hypertrophy of breast; D47.3 Essential (hemorrhagic) thrombocythemia; Z80.8 Family history of malignant neoplasm of other organs or systems; Z71.3 Dietary counseling and surveillance
CPT/HCPCS: 76536

== ENCOUNTER → 2024-11-25 | Outpatient (CLI) | payer BC ==
--- NOTE | 2024-11-25 12:47 | MM ---
Reason for Exam: Screening (asymptomatic). Last screening mammogram was performed 12 month(s) ago. Patient History: Menarche at age 13. First Full-Term at age 16. Postmenopausal. Patient has history of breast feeding. Previous Hyperplasia w/o Atypia at age 57. Hormonal Contraceptives for 2 years from age 18 until age 20. 05/20/2023, Benign US breast localization RT on the right side. 03/05/2023, High risk US biopsy breast VAD RT on the right side. 01/01/2021, Ultrasound-Guided Core Biopsy on the Left side. 02/28/2022, Ultrasound-Guided Core Biopsy on the Left side. Paternal aunt had breast cancer, age 70. Paternal half sister had breast cancer, age 54. Risk Values: Kathryn 5 year model risk: 1.5%. NCI Lifetime model risk: 8.1%. Prior Study Comparison: 03/05/2023 Right MG diagnostic mammo RT wo CAD, [facility]. 05/20/2023 Right MG diagnostic mammo RT wo CAD, [facility]. 11/24/2023 Bilateral MG 3D diag mammo w/cad J[facility], [facility]. Tissue Density: The breasts are heterogeneously dense, which may obscure small masses. Findings: Analyzed By CAD. Surgical changes right breast are present. Benign-appearing right axillary lymph nodes are identified. There is no suspicious group of microcalcifications or new suspicious mass in either breast. Overall Assessment: Benign, BI-RAD 2 Management: Screening Mammogram of both breasts in 1 year. . Patient should continue monthly self-breast exams. A clinical breast exam by your physician is recommended on an annual basis. This exam should not preclude additional follow-up of suspicious palpable abnormalities. Note on Kathryn scores and lifetime risk: 1. A Kathryn score greater than 3% is considered moderate risk. If this is the case, consider specialist referral to assess eligibility for a risk reducing agent. 2. If overall lifetime risk for the development of breast cancer is 20% or higher, the patient may qualify for future screening with alternating mammogram and breast MRI. [facility], , 11/25/2024 12:43 PM. Electronically signed and approved by: Armin Reilly M.D.
== END | disposition home or self-care (01) ==
LOC: RADMAMWWP 09:53
PROVIDERS: ATTEND Surgery
DX: Z12.31 Encounter for screening mammogram for malignant neoplasm of breast (principal); R92.333 Mammographic heterogeneous density, bilateral breasts; Z78.0 Asymptomatic menopausal state; Z80.3 Family history of malignant neoplasm of breast
CPT/HCPCS: 77063; 77067